=== PATIENT | female | born 1990 | race Caucasian/White ===

== ENCOUNTER 2022-07-19 16:47 | Emergency (ER) | payer BC ==
[2022-07-19] MEDS ORDERED: Acetaminophen 325 MG Tab PO ONE (17:08)
== END 2022-07-19 18:28 | disposition home or self-care (01) ==
LOC: MW.ED 16:47
DX: S09.90XA Unspecified injury of head, initial encounter (principal); Z88.0 Allergy status to penicillin; Z88.5 Allergy status to narcotic agent; W22.8XXA Striking against or struck by other objects, initial encounter
CPT/HCPCS: 70450; 99283; A9270